=== PATIENT | male | born 1990 | race Caucasian/White ===

== ENCOUNTER 2017-04-26 06:38 | Emergency (ER) | payer SELFPAY ==
[2017-04-26] MEDS ORDERED: Nitroglycerin 0.4 MG TAB (25 Tab Bottle) ONE (06:55)
[2017-04-26 07:02] LABS: Hemoglobin 13.4 g/dL (14.0-18.0); Red Blood Cell (RBC) Count 4.61 mill/uL (4.70-6.10); White Blood Cell (WBC) Count 6.4 thou/uL (4.8-10.8)
[2017-04-26 07:03] LABS: #Basophils 0.1 thou/uL (0.0-0.2); #Eosinphils 0.1 thou/uL (0.0-0.7); #Monocytes 0.4 thou/uL (0.11-0.59); #Neutrophils 2.8 thou/uL (1.40-6.50); %Basophils 0.9 % (0.0-1.0); %Eosinophils 2.3 % (0.0-10.0); %Lymphocytes 47.1 % (21.0-51.0); %Monocytes 5.8 % (0.0-10.0); %Neutrophils 43.9 % (42.0-75.0); Mean Corpuscular HGB CONC 32.9 g/dL (32.0-36.0); Mean Platelet Volume 6.9 fL (7.4-10.4); Platelet Count 276 thou/uL (130-400); RBC Distribution Width 11.7 % (11.5-14.5)
[2017-04-26 07:19] LABS: ALT (SGPT) 20 U/L (8-55); AST (SGOT) 23 U/L (5-34); Albumin 4.4 g/dL (3.5-5.0); Alkaline Phosphatase 72 U/L (40-150); Anion Gap 14 mmol/L (10-20); BUN (Urea Nitrogen) 15 mg/dL (8.9-20.6); Bilirubin, Total 0.4 mg/dL (0.2-1.2); Calc. Creatinine Clearance 0 mL/min (70-130); Calcium 9.8 mg/dL (7.8-10.44); Carbon Dioxide 24 mmol/L (22-29); Chloride 104 mmol/L (98-107); Estimated GFR-MDRD 81; Globulin 3.9 g/dL (2.4-3.5); Glucose 106 mg/dL (70-105); Potassium 3.4 mmol/L (3.5-5.1); Protein, Total 8.3 g/dL (6.0-8.3); Sodium 139 mmol/L (136-145)
[2017-04-26 07:20] LABS: CKMB 1.6 ng/mL (0-6.6); Troponin I Less than 0.010 ng/mL (< 0.028)
[2017-04-26 08:17] LABS: Bilirubin Negative (Negative); Blood, Urine Negative (Negative); Clarity Clear (Clear); Glucose, Urine (Dipstick) Negative (Negative); Leukocyte Negative (Negative); Nitrite Negative (Negative); Protein, Urine (Dipstick) Negative (Neg-Trace); Specific Gravity, Urine 1.015 (1.005-1.030); Urobilinogen 0.2 mg/dL (0.2-1.0)
[2017-04-26 08:21] LABS: Amphetamine Not Detected (NotDetected); Barbiturates Screen Not Detected (NotDetected); Benzodiazepine Screen Not Detected (NotDetected); Cocaine Metabolite Screen Not Detected (NotDetected); Medtox Control Line Valid? VALID (VALID); Methadone Not Detected (NotDetected); Methamphetamine Not Detected (NotDetected); Opiate Screen Not Detected (NotDetected); Oxycodone Screen Not Detected (NotDetected); Phencyclidine (PCP) Not Detected (NotDetected); THC/Cannabinoid Screen Not Detected (NotDetected); Tricyclic Screen Not Detected (NotDetected)
--- NOTE | 2017-04-26 08:36 | RAD ---
CHEST 2 VIEWS: HISTORY: Chest pain. FINDINGS: No comparison. The cardiac silhouette and pulmonary vasculature are unremarkable. The mediastinum i s midline. There is no confluent airspace consolidation, pneumothorax, or evidence of pleural fluid. neurosurgery research director leads overlie the chest. IMPRESSION: No active cardiopulmonary abnormalities are demonstrated. POS: [facility]
== END 2017-04-26 08:39 | disposition home or self-care (01) ==
LOC: NAV ERS 06:38
DX: R07.2 Precordial pain (principal)
CPT/HCPCS: 71046; 80053; 80306; 81003; 82553; 84484; 85025; 85379; 93005

== ENCOUNTER 2017-06-15 15:41 | Emergency (ER) | payer OTHER, SELFPAY ==
--- NOTE | 2017-06-15 16:20 | RAD ---
THREE VIEWS RIGHT MIDDLE FINGER 06/15/17 HISTORY: Right middle finger injury. Patient jammed middle finger on a piece of pipe. Finger is now deformed. FINDINGS: No acute fracture or dislocation is seen. No other osseous abnormality. IMPRESSION: No acute osseous abnormality right middle finger. POS: [facility]
[2017-06-15] MEDS ORDERED: Ibuprofen 800 MG TAB ONE (16:24)
== END 2017-06-15 16:30 | disposition home or self-care (01) ==
LOC: NAV ERS 15:41
DX: S63.612A Unspecified sprain of right middle finger, initial encounter (principal); W23.0XXA Caught, crushed, jammed, or pinched between moving objects, initial encounter